=== PATIENT | male | born 1935 | race Caucasian/White ===

== ENCOUNTER 2017-05-05 08:48 | Outpatient (CLI) | payer MEDICARE, OTHER ==
--- NOTE | 2017-05-07 11:47 | RAD ---
MODIFIED BARIUM SWALLOW: History: Dysphagia. Feeding difficulties. Swallowing difficulty. Intracerebral. FINDINGS: Exam is viewed on cine remotely. Patient was given different consistencies of barium under fluoroscopic imaging. There is moderate swallowing dysfunction. Mild spillage and pooling. There laryngeal penetration and mild aspiration seen with several thin consistencies. IMPRESSION: Significant swallowing dysfunction with laryngeal penetration and aspiration. See speech pathologist recommendation. POS: [id number]
== END 2017-05-05 08:49 | disposition home or self-care (01) ==
PROVIDERS: ATTEND Family Medicine
DX: I69.191 Dysphagia following nontraumatic intracerebral hemorrhage (principal); R13.10 Dysphagia, unspecified; R63.3 Feeding difficulties
CPT/HCPCS: 74230; G8996-GN-CL; G8997-GN-CL; G8998-GN-CL

== ENCOUNTER 2022-05-11 16:13 | Inpatient (IN) | payer MEDICARE ==
[~2022-05-11 16:13] MED LIST: Iopamidol-370 76% 500 ML 1 ML ONE
[2022-05-11 17:18] LABS: #Eosinphils 0.2 thou/uL (0.0-0.7); #Lymphocytes 2.7 thou/uL (1.20-3.40); #Monocytes 0.7 thou/uL (0.11-0.59); #Neutrophils 6.7 thou/uL (1.40-6.50); %Basophils 0.4 % (0.0-1.0); %Eosinophils 2.3 % (0.0-10.0); %Lymphocytes 25.6 % (21.0-51.0); %Monocytes 7.1 % (0.0-10.0); %Neutrophils 64.6 % (42.0-75.0); Mean Corpuscular HGB CONC 32.2 g/dL (32.0-36.0); Mean Corpuscular Volume 96.2 fl (78.0-98.0); Mean Platelet Volume 7.9 fL (7.4-10.4); Platelet Count 245 10x3/uL (130-400); RBC Distribution Width 11.8 % (11.5-14.5); Red Blood Cell (RBC) Count 4.51 mill/uL (4.70-6.10); White Blood Cell (WBC) Count 10.4 10x3/uL (4.8-10.8)
[2022-05-11 17:31] LABS: PTT 27.8 sec (22.9-36.1); Prothrombin Time 13.6 sec (12.0-14.7)
[2022-05-11 17:42] LABS: ALT (SGPT) 18 U/L (8-55); AST (SGOT) 29 U/L (5-34); Albumin 4.2 g/dL (3.4-4.8); Alkaline Phosphatase 53 U/L (40-110); Anion Gap 15 mmol/L (10-20); BUN (Urea Nitrogen) 17 mg/dL (8.4-25.7); Bilirubin, Total 0.8 mg/dL (0.2-1.2); Calc. Creatinine Clearance 0 mL/min (70-130); Calcium 9.5 mg/dL (7.8-10.44); Carbon Dioxide 25 mmol/L (23-31); Chloride 102 mmol/L (98-107); Estimated GFR 63; Glucose 101 mg/dL (83-110); Potassium 4.5 mmol/L (3.5-5.1); Protein, Total 7.2 g/dL (5.8-8.1); Sodium 137 mmol/L (136-145)
[2022-05-11] MEDS ORDERED: Aspirin Chewable 81 MG TAB ONE (18:02)
[2022-05-11] MEDS ORDERED: Aspirin 300 MG Suppository ONE (18:08)
[2022-05-11] MEDS ORDERED: Ondansetron ODT 4 MG TAB PO PRN (18:45)
[2022-05-11] MEDS ORDERED: Acetaminophen 325 MG TAB PO PRN (18:45)
[2022-05-11] MEDS ORDERED: Ondansetron PF 4 MG/2 ML Vial IVP PRN (18:45)
[2022-05-11] MEDS ORDERED: hydrALAZINE 20 MG/ML VIAL SLOW IVP PRN (18:57)
[2022-05-11 19:58] LABS: Hemoglobin A1c 6.2 % (4.0-6.0)
[2022-05-11 20:07] LABS: Magnesium 1.8 mg/dL (1.6-2.6); Phosphorus 3.3 mg/dL (2.3-4.7)
[2022-05-11] MEDS: Atorvastatin Calcium 40 MG TAB PO SCH (22:01)
[2022-05-11 22:31] VITALS: BMI 25.3
[2022-05-12 05:55] LABS: #Eosinphils 0.2 thou/uL (0.0-0.7); #Lymphocytes 2.4 thou/uL (1.20-3.40); #Monocytes 0.8 thou/uL (0.11-0.59); #Neutrophils 7.6 thou/uL (1.40-6.50); %Basophils 0.4 % (0.0-1.0); %Lymphocytes 21.4 % (21.0-51.0); %Monocytes 7.1 % (0.0-10.0); %Neutrophils 69.1 % (42.0-75.0); Hemoglobin 14.6 g/dL (14.0-18.0); Mean Corpuscular Hemoglobin 30.9 pg (27.0-31.0); Mean Corpuscular Volume 96.4 fl (78.0-98.0); Mean Platelet Volume 7.7 fL (7.4-10.4); Platelet Count 258 10x3/uL (130-400); RBC Distribution Width 11.8 % (11.5-14.5); Red Blood Cell (RBC) Count 4.73 mill/uL (4.70-6.10)
[2022-05-12 06:19] LABS: Anion Gap 15 mmol/L (10-20); BUN (Urea Nitrogen) 17 mg/dL (8.4-25.7); Calc. Creatinine Clearance 48 mL/min (70-130); Calcium 9.6 mg/dL (7.8-10.44); Carbon Dioxide 24 mmol/L (23-31); Cardiac Risk 4.6 (Less than 4.5); Chloride 100 mmol/L (98-107); Cholesterol 212 mg/dl (< 200 Desired); Estimated GFR 60; Glucose 116 mg/dL (83-110); HDL Cholesterol 46 mg/dL (>60 Neg Risk); LDL Cholesterol, Calculated 148 mg/dL; Potassium 4.4 mmol/L (3.5-5.1); Sodium 135 mmol/L (136-145); Triglycerides 89 mg/dL (Less than 150)
[2022-05-12] MEDS: Aspirin 81 mg Enteric Coated Tablet PO SCH (11:00)
[2022-05-12] MEDS: Atorvastatin Calcium 40 MG TAB PO SCH (20:06)
[2022-05-12 23:02] LABS: D-Dimer Test 0.49 *mcg/mL (0.27-0.43); INR-International Normal Ratio 1.1; PTT 28.1 sec (22.9-36.1); Prothrombin Time 14.7 sec (12.0-14.7)
[2022-05-13] MEDS: Aspirin 81 mg Enteric Coated Tablet PO SCH (08:56)
[2022-05-13 13:53] LABS: Cardiolipin IgA Ab 4.4 APL-U/mL (<14 Negative); Cardiolipin IgM Ab Less than 0.8 MPL-U/mL (<10 Negative); EliA APS New Method **** NEW METHOD ****
[2022-05-13 15:55] VITALS: BP 171/99; TEMP 97.9
== END 2022-05-13 18:18 | disposition home health service (06) | DRG 65 ==
LOC: ERS 16:13 → ERHOLD 18:33 → NEURO 20:40 → OBSVTOIN 05-12 15:59
PROVIDERS: ADMIT Internal Medicine; ATTEND Emergency Medicine
DX: I63.9 Cerebral infarction, unspecified (principal); G81.94 Hemiplegia, unspecified affecting left nondominant side; E78.2 Mixed hyperlipidemia; K21.9 Gastro-esophageal reflux disease without esophagitis; E78.00 Pure hypercholesterolemia, unspecified; R13.12 Dysphagia, oropharyngeal phase; Z96.653 Presence of artificial knee joint, bilateral; Z96.611 Presence of right artificial shoulder joint; Z20.822 Contact with and (suspected) exposure to COVID-19; Z90.49 Acquired absence of other specified parts of digestive tract; Z98.890 Other specified postprocedural states
CPT/HCPCS: 36415; 36416; 70450; 70496; 70498; 70551; 71045; 74230; 80048; 80053; 80061; 83036; 83090; 83735; 84100; 84443; 85025; 85240; 85300; 85303; 85305; 85307; 85379; 85598; 85610; 85730; 86147; 93005; 93306; G0378; Q9967; U0003; U0005

== ENCOUNTER 2023-04-14 18:58 | Inpatient (IN) | payer MEDICARE ==
[2023-04-14 22:13] VITALS: BMI 26.0
[2023-04-14] MEDS: Piperacillin/Tazobactam 3.375 GM in Sodium Chloride 0.9% 100 ML IVPB SCH (22:27)
[2023-04-14] MEDS ORDERED: Ondansetron PF 4 MG/2 ML Vial IVP PRN (22:44)
[2023-04-14] MEDS ORDERED: Acetaminophen 325 MG TAB PO PRN (22:44)
[2023-04-15 05:31] LABS: #Basophils 0.1 thou/uL (0.0-0.2); #Eosinphils 0.1 thou/uL (0.0-0.7); #Monocytes 1.1 thou/uL (0.11-0.59); #Neutrophils 12.8 thou/uL (1.40-6.50); %Basophils 0.3 % (0.0-1.0); %Eosinophils 0.6 % (0.0-10.0); %Lymphocytes 10.8 % (21.0-51.0); %Monocytes 7.1 % (0.0-10.0); %Neutrophils 80.6 % (42.0-75.0); Hematocrit 32.9 % (42.0-52.0); Mean Corpuscular HGB CONC 33.4 g/dL (32.0-36.0); Mean Corpuscular Hemoglobin 30.3 pg (27.0-31.0); Mean Corpuscular Volume 90.6 fl (78.0-98.0); Mean Platelet Volume 9.3 fL (7.4-10.4); Platelet Count 241 10x3/uL (130-400); RBC Distribution Width 13.3 % (11.5-14.5); Red Blood Cell (RBC) Count 3.63 mill/uL (4.70-6.10); White Blood Cell (WBC) Count 15.8 10x3/uL (4.8-10.8)
[2023-04-15 05:56] LABS: Anion Gap 13 mmol/L (10-20); BUN (Urea Nitrogen) 14 mg/dL (8.4-25.7); Calc. Creatinine Clearance 48 mL/min (70-130); Calcium 8.5 mg/dL (7.8-10.44); Carbon Dioxide 25 mmol/L (23-31); Chloride 99 mmol/L (98-107); Estimated GFR 59; Glucose 97 mg/dL (83-110); Potassium 4.2 mmol/L (3.5-5.1); Sodium 133 mmol/L (136-145)
[2023-04-15] MEDS: Piperacillin/Tazobactam 3.375 GM in Sodium Chloride 0.9% 100 ML IVPB SCH (06:24)
[2023-04-15] MEDS: Clopidogrel Bisulfate 75 MG TAB PO SCH (09:03)
[2023-04-15] MEDS: Amlodipine 5 MG TAB PO SCH (09:03)
[2023-04-15] MEDS ORDERED: Polyethylene Glycol 3350 17 GM Packet PO SCH (14:15)
[2023-04-15] MEDS ORDERED: Lidocaine 2% Viscous Solution 10 ML, Aluminum & Magnesium Hydroxide 30 ML SSW SCH (20:30)
[2023-04-15] MEDS: Pantoprazole 40 MG VIAL IVP SCH (20:43)
[2023-04-15] MEDS: Tamsulosin HCl 0.4 MG CAP PO SCH (20:44)
[2023-04-15] MEDS ORDERED: Atorvastatin Calcium 40 MG TAB PO SCH (21:00)
[2023-04-16 04:36] LABS: #Eosinphils 0.2 thou/uL (0.0-0.7); #Monocytes 1.2 thou/uL (0.11-0.59); #Neutrophils 9.4 thou/uL (1.40-6.50); %Basophils 0.3 % (0.0-1.0); %Eosinophils 1.8 % (0.0-10.0); %Lymphocytes 13.4 % (21.0-51.0); %Monocytes 9.5 % (0.0-10.0); %Neutrophils 74.5 % (42.0-75.0); Hematocrit 32.2 % (42.0-52.0); Hemoglobin 10.8 g/dL (14.0-18.0); Mean Corpuscular HGB CONC 33.5 g/dL (32.0-36.0); Mean Corpuscular Hemoglobin 30.6 pg (27.0-31.0); Mean Corpuscular Volume 91.2 fl (78.0-98.0); Mean Platelet Volume 9.7 fL (7.4-10.4); Platelet Count 232 10x3/uL (130-400); RBC Distribution Width 13.5 % (11.5-14.5); Red Blood Cell (RBC) Count 3.53 mill/uL (4.70-6.10); White Blood Cell (WBC) Count 12.7 10x3/uL (4.8-10.8)
[2023-04-16 05:07] LABS: Anion Gap 11 mmol/L (10-20); BUN (Urea Nitrogen) 14 mg/dL (8.4-25.7); Calc. Creatinine Clearance 51 mL/min (70-130); Calcium 8.6 mg/dL (7.8-10.44); Carbon Dioxide 27 mmol/L (23-31); Chloride 99 mmol/L (98-107); Estimated GFR 64; Glucose 100 mg/dL (83-110); Potassium 4.3 mmol/L (3.5-5.1); Sodium 133 mmol/L (136-145)
[2023-04-16] MEDS ORDERED: Polyethylene Glycol 3350 17 GM Packet PO SCH (09:00)
[2023-04-16] MEDS ORDERED: PROPOFOL 20 ML ONE (09:21)
[2023-04-16] MEDS ORDERED: fentaNYL 50 mcg/mL 1 mL Vial ONE (09:21)
[2023-04-16] MEDS ORDERED: Lidocaine 1% PF 5 ML VIAL ONE (09:21)
[2023-04-16] MEDS ORDERED: Ondansetron HCl/PF 4 MG/2 ML Vial IVP PRN (10:02)
[2023-04-16] MEDS ORDERED: Promethazine HCl 25 MG/ML VIAL IM PRN (10:02)
[2023-04-16] MEDS: Amlodipine 5 MG TAB PO SCH (10:34)
[2023-04-16] MEDS: Clopidogrel Bisulfate 75 MG TAB PO SCH (10:34)
[2023-04-16] MEDS: Pantoprazole 40 MG VIAL IVP SCH (10:35)
[2023-04-16 10:45] VITALS: BP 133/71
[2023-04-16 10:58] VITALS: TEMP 97.7
== END 2023-04-16 16:10 | disposition home or self-care (01) | DRG 392 ==
LOC: 2SW 21:16 → OBSVTOIN 04-16 08:46
PROVIDERS: ADMIT Internal Medicine; ATTEND Internal Medicine
PROC: 0DB68ZX Excision of Stomach, Via Natural or Artificial Opening Endoscopic, Diagnostic (ICD-10-PCS; principal; 2023-04-16)
DX: K29.70 Gastritis, unspecified, without bleeding (principal); I69.351 Hemiplegia and hemiparesis following cerebral infarction affecting right dominant side; E87.1 Hypo-osmolality and hyponatremia; E78.5 Hyperlipidemia, unspecified; K21.9 Gastro-esophageal reflux disease without esophagitis; D64.9 Anemia, unspecified; N40.0 Benign prostatic hyperplasia without lower urinary tract symptoms; Z96.651 Presence of right artificial knee joint; Z96.652 Presence of left artificial knee joint; Z96.611 Presence of right artificial shoulder joint; D72.829 Elevated white blood cell count, unspecified; I25.10 Atherosclerotic heart disease of native coronary artery without angina pectoris; N28.1 Cyst of kidney, acquired; Z79.01 Long term (current) use of anticoagulants; Z82.49 Family history of ischemic heart disease and other diseases of the circulatory system; Z79.899 Other long term (current) drug therapy; Z98.890 Other specified postprocedural states; Z90.49 Acquired absence of other specified parts of digestive tract
CPT/HCPCS: 36415; 80048; 85025; C9113; J2543; J2704; J3010; J3490